=== PATIENT | female | born 1990 | race Caucasian/White ===

== ENCOUNTER 2017-01-31 11:01 | Outpatient (CLI) | payer OTHER ==
[~2017-01-31] VITALS: Ht 165.1 cm; Wt 71.8 kg
[~2017-01-31 11:01] MED LIST: NORCO 325 MG-51 TAB PO; PRENATAL1 TA7 PO
[2017-01-31 11:18] VITALS: BP 107/66; PULSE 102; TEMP 98.2
[2017-01-31 12:30] VITALS: BP 115/71; PULSE 104
[2017-01-31 13:09] LABS: PH 7 (5-8); SQUAMOUS EPITHELIAL None Seen /hpf; URINE APPEARANCE Clear; URINE BACTERIA None Seen /hpf; URINE BILIRUBIN Negative (NEGATIVE); URINE BLOOD Negative (NEGATIVE); URINE COLOR Straw; URINE GLUCOSE Negative (NEGATIVE); URINE KETONE Negative (NEGATIVE); URINE RBC 0-2 /hpf; URINE UROBILINOGEN Negative (NEGATIVE); URINE WBC 0-2 /hpf
[2017-01-31 14:00] VITALS: BP 105/69; PULSE 93
[2017-01-31 14:30] VITALS: BP 102/63; PULSE 105
== END 2017-01-31 14:55 | disposition home or self-care (01) ==
LOC: LDRO 11:01
PROVIDERS: Obstetrics & Gynecology
DX: O62.9 Abnormality of forces of labor, unspecified (principal); Z3A.31 31 weeks gestation of pregnancy
CPT/HCPCS: J3105; J7120

== ENCOUNTER 2017-03-06 16:04 | Inpatient (IN) | payer OTHER ==
[~2017-03-06] VITALS: Ht 165.1 cm; Wt 82.3 kg
[2017-03-26] VITALS (26 sets, daily range): BP systolic 97–132; BP diastolic 55–83; PULSE 71–113; TEMP 97.7–98.3
[2017-03-26 07:50] LABS: BASO % 0.2 % (0.0-2.0); EOS # 0.1 (0.0-0.7); GRAN # 6.6 (1.4-6.5); GRAN % 71.2 % (42.2-75.2); LYMPH # 1.8 (1.2-3.4); LYMPH % 19.5 % (20.0-51.0); MEAN CELL VOLUME 88 fl (80.0-100.0); MEAN CORPUSCULAR HGB CONC 33 g/dl (33.0-37.0); MONO # 0.7 (0.1-0.6); PLATELET COUNT 221 K/mm3 (130-400); RED BLOOD COUNT 3.56 M/mm3 (4.10-5.30); REDCELL DISTRIBUTION WIDTH-CV 13.5 % (11.5-14.5); WHITE BLOOD COUNT 9.3 K/mm3 (4.8-10.8)
[2017-03-26 07:53] LABS: HEMATOCRIT 31.3 % (37.0-47.0); HEMOGLOBIN 10.3 g/dl (12.5-16.0); MEAN CORPUSCULAR HEMOGLOBIN 29 pg (27.0-31.0)
[2017-03-26] MEDS ORDERED: PRENATAL1 TA7 PO (08:00)
[2017-03-26] MEDS ORDERED: ZOLOFT 100MG100 MG PO (08:01)
[2017-03-27 06:40] VITALS: BP 112/72; PULSE 90; TEMP 98.2
[2017-03-27] MEDS ORDERED: IBU600 MG PO (07:19)
[2017-03-27 08:14] LABS: HEMATOCRIT 33.4 % (37.0-47.0); HEMOGLOBIN 10.8 g/dl (12.5-16.0)
[2017-03-27 12:30] VITALS: BP 117/70; PULSE 88; TEMP 97.3
== END 2017-03-27 13:55 | disposition home or self-care (01) | DRG 775 ==
LOC: LDRO 16:04 → LDR 03-26 06:53 → OB 03-26 15:47 → EDSTATUS 04-02 08:43 → LDRO 04-02 15:51
PROVIDERS: Obstetrics & Gynecology
PROC: 10E0XZZ Delivery of Products of Conception, External Approach (ICD-10-PCS; principal; 2017-03-26)
DX: O99.283 Endocrine, nutritional and metabolic diseases complicating pregnancy, third trimester (principal); E55.9 Vitamin D deficiency, unspecified; O77.0 Labor and delivery complicated by meconium in amniotic fluid; O99.344 Other mental disorders complicating childbirth; F32.9 Major depressive disorder, single episode, unspecified; Z3A.39 39 weeks gestation of pregnancy; Z37.0 Single live birth
CPT/HCPCS: C9113; J2210; J2590; J7120